=== PATIENT | male | born 1990 | race Caucasian/White ===

== ENCOUNTER 2020-02-13 02:11 | Emergency (ER) | payer OTHER, SELFPAY ==
[2020-02-13] VITALS (9 sets, daily range): BP systolic 105–160; BP diastolic 57–87; PULSE 97–164; RESP 12–23; TEMP 36.8; O2SAT 94–100
--- NOTE | ~2020-02-13 | XR_ITS ---
EXAMINATION: XR chest 1V portable 02/13/2020 02:41 INDICATION: SVT. Dyspnea. PROCEDURE: AP portable chest COMPARISON: 08/07/2016 FINDINGS: The lungs are clear. The cardiomediastinal silhouette is within normal limits. There are no pleural effusions. There is no pneumothorax suspected. Calcified granuloma right upper lobe. Sha llow inspiration. IMPRESSION: 1: NO ACUTE CARDIOPULMONARY DISEASE. Reviewed, dictated and finalized at location A.
--- NOTE | 2020-02-13 02:21 | ED.ANXIETY ---
HPI - Anxiety General Chief Complaint: Anxiety Stated Complaint: anxiety Time Seen by Provider: 02/13/20 02:21 Source: patient and family Mode of arrival: EMS Limitations: no limitations History of Present Illness HPI narrative: Patient is a 29-year-old male with history of anxiety who presents for evaluation of palpitations and shortness of breath. Patient states he was driving home this evening when suddenly he began to have palpitations and difficulty breathing. Patient states he could feel rapid heart rate, and is reporting chest pressure. No radiation of pain into back, jaw, arm, or shoulder. Described as discomfort per patient. States he has a history of palpitations, has attributed this anxiety in the past for which she has been prescribed citalopram but is not taking this. He denies any new medications. He reports he had 2 alcoholic beverages this evening, but when further questioned admits to more. He denies drug use. He denies cigarette use. He denies history of thyroid problems. Pt is mildly intoxicated at time of assessment. Related Data Allergies Allergy/AdvReac Type Severity Reaction Status Date / Time No Known Allergies Allergy Unverified 12/16/19 14:24 Review of Systems Review of Systems: Narrative: CONSTITUTIONAL: Denies fever CARDIOVASCULAR: Chest discomfort and reports palpitations RESPIRATORY: Denies cough or dyspnea. GASTROINTESTINAL: Denies abdominal pain SKIN: Denies rash MUSCULOSKELETAL: Denies back pain NEUROLOGIC: Denies headache Psych: Reports anxiety PMFSH Past Medical History Medical History Appendicitis Surgical History Surgical History Hx of appendectomy Family History Family History (System 12/16/19 @ 14:24 by Matt Kaur) Father Diabetes mellitus Mother Patient's mother is in good health Social History Social History (Updated 02/13/20 @ 02:25 by Federica Lopez MD) Smoking status: Never smoker Second hand tobacco smoke exposure: No Alcohol intake: current Substance use: never Gender identity (if verbalized by the patient): Male Exam Narrative: Exam Narrative: GENERAL: Awake, alert, conversant, anxious appearing HEAD: Normocephalic, atraumatic. EYES: PERRLA and EOMI. ENT: Nares clear, no rhinorrhea or epistaxis. Mucous membranes moist. NECK: Supple. CHEST: No respiratory distress, breathing even and non labored HEART: Tachycardic rate, regular rhythm, consistent with SVT ABDOMEN:Non distended, non tender EXTREMITIES: Normal range of motion. No edema. SKIN: Warm, dry, no rash. NEURO:No focal deficits. Alert and oriented x3 Course Vital Signs Vital signs: Vital Signs Temperature 36.8 C 02/13/20 02:11 Pulse Rate 164 H 02/13/20 02:11 Respiratory Rate 18 02/13/20 02:11 Blood Pressure 160/77 H 02/13/20 02:11 Pulse Oximetry 98 02/13/20 02:11 Temperature 36.8 C 02/13/20 02:11 Pulse Rate 108 H 02/13/20 06:18 Respiratory Rate 19 02/13/20 06:18 Blood Pressure 111/87 02/13/20 06:18 Pulse Oximetry 99 02/13/20 06:18 MDM - Anxiety MDM Narrative Medical decision making narrative: Patient presented for evaluation of palpitations via EMS. At the time of assessment, ABCs are intact, vital signs notable for tachycardia to the 160s not entirely consistent with SVT, but when slowed there are P waves visible and seems more consistent with sinus tachycardia. Patient does report some mild anxiety contributing. IV access obtained and labs are drawn. Patient denying any chest pain. Tried a modified Valsalva maneuver and this was somewhat successful, heart rate slowed into the 1 teens, but then increased to the 160s again. Tried adenosine at 6 mg and 12 mg without any change in the patient's heart rate, no discernible flutter waves. After speaking with cardiology and faxing the EKGs to Dr. Mittal, she recommended a bolus
--- NOTE | 2020-02-13 02:25 | ECG_ITS ---
Measurements Intervals [place] Rate: 154 P: 59 DE: 112 QRS: 32 QRSD: 94 T: -19 QT: 323 QTc: 517 Interpretive Statements SINUS TACHYCARDIA WITH SHORT DE INTERVAL, POSSIBLE ATRIAL FLUTTER ST-T WAVE ABNORMALITY IN ANTEROLAT/INF LEADS- CONSIDER ISCHEMIA ABNORMAL ECG Electronically Signed On 02-13-2020 8:30:09 CDT by Alverto Downing D.O.
[2020-02-13 02:33] LABS: Basophils Absolute Auto 0.1 K/mm3 (0.0-0.1); Basophils Percent Auto 0.6 % (0.2-1.2); Eosinophils Absolute Auto 0.2 K/mm3 (0-0.3); Eosinophils Percent Auto 2.2 % (0-4.4); Hemoglobin 15.3 g/dL (14.0-18.0); Immature Granulocyte Absolute 0.01 K/mm3 (0.00-0.031); Immature Granulocyte Percent A 0.1 % (0-0.5); Lymphocytes Absolute Auto 2.69 K/mm3 (0.9-3.2); Lymphocytes Percent Auto 33.1 % (18.3-44.2); Mean Corpuscular Hemoglobin 28.8 pg (26-34); Mean Corpuscular Volume 84.7 fl (80-100); Mean Platelet Volume 8.9 fl (7.4-10.4); Monocytes Absolute Auto 0.7 K/mm3 (0.1-0.6); Monocytes Percent Auto 8.5 % (2.6-8.5); Neutrophils Absolute Auto 4.5 K/mm3 (1.3-6.7); Neutrophils Percent Auto 55.5 % (45.5-73.1); Platelet Count Result 313 k/mm3 (150-375); Red Blood Count 5.31 M/mm3 (4.6-6.20); Red Cell Distribution Width 13.1 % (11.5-14.5); White Blood Count 8.1 K/mm3 (4.5-10.0)
[2020-02-13 02:51] LABS: Anion Gap 11 mmol/L (8-16); Blood Urea Nitrogen 14 mg/dL (9-20); Calcium 9.1 mg/dL (8.4-10.2); Carbon Dioxide 21 mmol/L (22-30); Chloride 105 mmol/L (98-107); Estimated Glomerular Filt Rate > 60; Glucose 142 mg/dL (75-110); Potassium 3.7 mmol/L (3.4-5.0); Sodium 137 mmol/L (137-145)
--- NOTE | 2020-02-13 02:55 | PC.NURSE ---
4mg zofran given by this rn at 0245, verbal order michell dee 6mg adenosine given IVP by this rn, verbal order from michell dee at 0249. 12mg adenosine given IVP by this rn, verbal order from michell dee at 0255
[2020-02-13] MEDS: SODIUM CHLORIDE 0.9% IV 1,000 ML 999 ML (03:00)
[2020-02-13 03:17] LABS: Ethanol 74 mg/dL (<10)
[2020-02-13] MEDS: LORazepam (*CRX) 0.5 MG TABLET PO (03:38)
[2020-02-13] MEDS: dilTIAZem HCl INJ 25 MG/5 ML VIAL 10 MG IV PUSH (03:38)
[2020-02-13 03:43] LABS: Magnesium 1.9 mg/dL (1.6-2.3)
--- NOTE | 2020-02-13 04:11 | ECG_ITS ---
Measurements Intervals [place] Rate: 138 P: 43 IN: 120 QRS: 6 QRSD: 83 T: -22 QT: 274 QTc: 415 Interpretive Statements SINUS TACHYCARDIA BORDERLINE ST-T WAVE ABNORMALITY- ANTEROLAT/INF LEADS BASELINE ARTIFACT- V1-V3 ABNORMAL ECG Electronically Signed On 02-13-2020 8:31:36 CDT by Alverto Downing D.O.
[2020-02-13 04:14] LABS: Thyroid Stimulating Hormone 0.998 uIU/mL (0.465-4.680)
[2020-02-13 04:37] LABS: Prothrombin Time 12.4 Seconds (11.1-14.7)
[2020-02-13 04:38] LABS: Partial Thromboplastin Time 26.3 SECONDS (22.3-36.8)
[2020-02-13] MEDS: SODIUM CHLORIDE 0.9% IV 1,000 ML 999 ML IV CONT ×2 (04:44→05:59)
[2020-02-13 04:45] LABS: Troponin I < 0.012 ng/mL (0.000-0.034)
[2020-02-13 04:48] LABS: Add Urine Microscopic? NO; Appearance Urine Clear (Clear); Bilirubin Urine Negative (Negative); Blood Urine Negative (Negative); Color Urine Straw (Yellow); Glucose Urine UA Negative (Negative); Ketones Urine Negative (Negative); Leukocyte Esterase Ur Negative LEU/UL (Negative); Nitrate Urine Negative (Negative); Protein Urine Negative (Negative); Urobilinogen Urine Negative mg/dL (<2.0)
[2020-02-13 05:03] LABS: Amphetamine Screen Urine Negative (Negative); Barbiturate Screen Urine Negative (Negative); Benzodiazepines Screen Urine Negative (Negative); Cannabinoid Screen Urine Positive (Negative); Cocaine Screen Urine Negative (Negative); Methadone Screen Urine Negative (Negative); Opiate Screen Urine Negative (Negative); Phencyclidine Screen Urine Negative (Negative)
--- NOTE | 2020-02-13 05:43 | ECG_ITS ---
Measurements Intervals [place] Rate: 122 P: CT: 0 QRS: 16 QRSD: 97 T: -13 QT: 294 QTc: 420 Interpretive Statements SINUS TACHYCARDIA BORDERLINE ST-T WAVE ABNORMALITY- ANT/INF LEADS ABNORMAL ECG Electronically Signed On 02-13-2020 8:32:46 CDT by Alverto Downing D.O.
== END 2020-02-13 07:12 | disposition home or self-care (01) ==
LOC: ANHED 03:24 → ANHIMU 05:36 → ANHED 06:51
PROVIDERS: Emergency Provider Emergency Medicine; PCP Family Medicine
DX: R00.2 Palpitations (principal); R00.0 Tachycardia, unspecified; R94.31 Abnormal electrocardiogram [ECG] [EKG]
CPT/HCPCS: 36415; 71045; 80048; 80307; 81003; 83735; 84443; 84484; 85025; 85610; 85730; 93005; 96361; 96365; 96366; 99284; A9270; J0153; J2405; J7030